=== PATIENT | female | born 1945 | race Caucasian/White ===

== ENCOUNTER → 2018-01-08 14:57 | Outpatient (REF) | payer OTHER, SELFPAY | LOC: LAB 14:57 | PROVIDERS: PCP Nurse Practitioner Family; Visit Provider Dermatology | DX: D48.5 Neoplasm of uncertain behavior of skin (principal) | CPT/HCPCS: 87070; 87075; 87077; 87147; 87186; 87205 ==

== ENCOUNTER → 2018-03-25 09:37 | Outpatient (CLI) | payer OTHER, SELFPAY ==
--- NOTE | 2018-03-25 | DI.CT.S_ITS ---
PROCEDURE: CT ABDOMEN W CON INDICATIONS: ABDOMINAL TENDERNESS TECHNIQUE: After the administration of intravenous contrast, 5 mm thick sections acquired from the diaphragm to the iliac crests. 5 mm coronal and sagittal reformats were performed. For radiation dose reduction, the following was used: automated exposure control, adjustment of mA and/or kV according to patient size. COMPARISON: None. FINDINGS: Image quality: Excellent. Lung bases: Lung bases are clear. Heart size is normal. Cardiac pacer leads are noted. Solid organs: Liver is normal in size and enhancement. Mild, diffuse fatty infiltration of the liver. Gallbladder contains a 2.1 cm diameter partially calcified stone. There is slight prominence of the gallbladder wall. Biliary system is non dilated. Pancreas enhances normally. Spleen is normal in size and enhancement. No adrenal nodules. Kidneys demonstrate normal size and enhancement, without hydronephrosis. Probable right peripelvic cyst. Peritoneum and bowel: Small hiatal hernia noted. Bowel loops demonstrate normal wall thickness and caliber. No free fluid or air. Nodes and vessels: No retroperitoneal or mesenteric adenopathy by size criteria. Aorta and inferior vena cava are normal in size. Scattered atherosclerotic calcifications involving the abdominal and pelvic vasculature. Miscellaneous: No ventral hernias. Spine degenerative disc disease and facet arthropathy. IMPRESSION: 1. Cholelithiasis with slight prominence of the gallbladder wall. Recommend abdominal ultrasound there is clinical concern for cholecystitis. 2. Hepatic steatosis. 3. No free fluid or air. 4. No dilated loops of bowel. 5. Small hiatal hernia. Dictated by: Melissa Ruiz MD, PhD on 03/25/2018 at 11:38 Approved by: Melissa Ruiz MD, PhD on 03/25/2018 at 11:43
== END ==
PROVIDERS: PCP Nurse Practitioner Family; Visit Provider Nurse Practitioner Family
DX: R10.819 Abdominal tenderness, unspecified site (principal); K80.20 Calculus of gallbladder without cholecystitis without obstruction; K76.0 Fatty (change of) liver, not elsewhere classified; K44.9 Diaphragmatic hernia without obstruction or gangrene
CPT/HCPCS: 74160; Q9967

== ENCOUNTER → 2018-04-10 09:50 | Outpatient (CLI) | payer OTHER, SELFPAY ==
--- NOTE | 2018-04-10 | DI.US.S_ITS ---
PROCEDURE: US ABDOMEN LIMITED INDICATIONS: Calculus of gallbladder without cholecystitis with TECHNIQUE: Real-time focused scanning was performed of the abdomen, with image documentation. COMPARISON: [facility], US, RENAL COMPLETE, 02/17/2011, 11:11. [facility], CT, CT ABDOMEN W CON, 03/25/2018, 10:34. FINDINGS: Normal appearance of the liver. 3 gallstones are present there is no gallbladder wall thickening which measures 3 mm. Adenomyomatosis of the gallbladder wall. IMPRESSION: Cholelithiasis and adenomyomatosis of the gallbladder. Dictated by: Supa BRADY Interpreted: Nahid Locke MD on 04/10/2018 at 12:25 Approved by: Nahid Locke M.D. on 04/10/2018 at 14:29
== END ==
PROVIDERS: PCP Nurse Practitioner Family; Visit Provider Nurse Practitioner Family
DX: K80.20 Calculus of gallbladder without cholecystitis without obstruction (principal)
CPT/HCPCS: 76705

== ENCOUNTER → 2018-08-02 12:32 | Outpatient (CLI) | payer OTHER, SELFPAY ==
--- NOTE | 2018-08-02 | DI.MG.S_ITS ---
BILATERAL DIGITAL SCREENING MAMMOGRAM 3D/2D WITH CAD: 08/02/2018 CLINICAL: Routine screening. Comparison is made to exams dated: 07/31/2016 mammogram, 12/12/2012 mammogram, and 11/01/2010 mammogram - [facility]. The tissue of both breasts is heterogeneously dense. This may lower the sensitivity of mammography. Current study was also evaluated with a Computer Aided Detection (CAD) system. No significant masses, calcifications, or other findings are seen in either breast. There has been no significant interval change. IMPRESSION: NEGATIVE There is no mammographic evidence of malignancy. A 1 year screening mammogram is recommended. This exam was interpreted at Station ID: [id number]. NOTE: For mammograms, a report in lay terms will be sent to the patient. Approximately 15% of breast malignancies will not be visualized mammographically. In the management of a palpable breast mass, a negative mammogram must not discourage biopsy of a clinically suspicious lesion. Electronically Signed By: Dragan lauren/megan:08/02/2018 13:59:11 letter sent: Normal Exam ACR BI-RADS Category 1: Negative [id number]
== END ==
PROVIDERS: PCP Nurse Practitioner Family; Visit Provider Nurse Practitioner Family
DX: Z12.31 Encounter for screening mammogram for malignant neoplasm of breast (principal)
CPT/HCPCS: 77063; 77067